=== PATIENT | male | born 1955 | race African-American/Black ===

== ENCOUNTER 2016-11-19 07:23 | Inpatient (IN) | payer OTHER ==
[2016-11-19] VITALS (21 sets, daily range): BP systolic 106–158; BP diastolic 59–93; PULSE 70–98; RESP 12–30; TEMP 98.3; Ht 177.8 cm; Wt 76.0 kg
[~2016-11-19] VITALS: Ht 177.8 cm; Wt 76.0 kg
[~2016-11-19 07:23] MED LIST: ALLO100T PO; LOSA1TAB21 PO; SIMV40TA2 PO
[2016-11-19] MEDS ORDERED: NITROGLYCERIN 2% 1 GM OINT PKT TD STA (07:39)
[2016-11-19] MEDS ORDERED: ASPIRIN 325 MG TAB PO STA (07:39)
--- NOTE | 2016-11-19 08:05 | ERA ---
ER Documentation Chief Complaint Date/Time DATE: 11/19/16 TIME: 08:01 Chief Complaint Chest pain x today HPI This 61-year-old male with a history of hypertension high cholesterol with prior stents 3. The first 2 stents were placed emergently and the third stent was placed year and a half ago due to angina and found blockage on cath. Patient is complaining of 2 days of chest pain that feels like prior heart pain but not quite as severe. He is having some pressure with no radiation, positive palpitations, mild shortness of breath and some diaphoresis. Currently has no pain. The pain occurs mostly when he is exerting himself and not at rest. Patient has nitro and did not try taking it. Patient has had no chest pain for the past year and a half ROS All systems reviewed and are negative except as per history of present illness. Medications Home Meds Reported Medications Losartan-Hydrochlorothiazide (Losartan-HCTZ) 100-12.5 Mg Tab, 1 TAB PO DAILY, TAB 12/12/14 Allopurinol* (Allopurinol*) 100 Mg Tablet, 100 MG PO DAILY, TAB 12/12/14 Simvastatin* (Zocor*) 40 Mg Tablet, 40 MG PO HS, TAB 12/12/14 Allergies Allergies: Coded Allergies: No Known Allergy (Unverified , 12/12/14) PMhx/Soc History of Surgery: Yes (LUNG SURGERY FOR SHRAPNEL) Anesthesia Reaction: No Hx Neurological Disorder: No Hx Respiratory Disorders: No Hx Cardiac Disorders: Yes (PREV CORONARY STENTS 3 YRS AGO) Hx Psychiatric Problems: No Hx Miscellaneous Medical Probl: No Hx Alcohol Use: Yes (SOCIAL) Hx Substance Use: Yes (MARIJUANA, LAST USE 12/11/2014) Hx Tobacco Use: No Smoking Status: Never smoker FmHx Family History: coronary disease Physical Exam Vitals Vital Signs Date Time Temp Pulse Resp B/P Pulse Ox O2 Delivery O2 Flow Rate FiO2 11/19/16 07:27 96.6 54 18 143/63 100 Physical Exam Const: Well-developed, well-nourished Head: Atraumatic, normocephalic Eyes: Normal Conjunctiva, PERRLA, EOMI, normal sclera, no nystagmus ENT: Normal External Ears, Nose and Mouth, moist mucus membranes. Neck: Full range of motion. No meningismus, no lymphadenopathy. Resp: Clear to auscultation bilaterally, no wheezing, rhonchi, rales Cardio: Regular rate and rhythm, no murmurs, S1 S2 present Abd: Soft, non tender x 4, non distended. Normal bowel sounds, no guarding or rebound, no pulsitile abdominal masses or bruits Skin: No petechiae or rashes, no ecchymosis , no maculopapular rash Back: No midline or flank tenderness Ext: No cyanosis, or edema, FROM x 4, normal inspection, neurovascularly intact x 4 Neur: Awake and alert, STR 5/5 x 4, sensation intact x 4, no focal findings, cerebellum intact Psych: Normal Mood and Affect Result Diagram: 11/19/16 0800 11/19/16 0900 Results 24 hrs Laboratory Tests Test 11/19/16 08:00 11/19/16 09:00 White Blood Count 3.910^3/ul Red Blood Count 5.9310^6/ul Hemoglobin 15.3g/dl Hematocrit 49.1% Mean Corpuscular Volume 82.8fl Mean Corpuscular Hemoglobin 25.8pg Mean Corpuscular Hemoglobin Concent 31.2g/dl Red Cell Distribution Width 15.8% Platelet Count 06639^3/UL Mean Platelet Volume 10.9fl Neutrophils % 30.0% Band Neutrophils % 2.0% Lymphocytes % 42.0% Monocytes % 18.0% Eosinophils % 4.0% Metamyelocytes % 2.0% Myelocytes % 2.0% Neutrophils # 1.210^3/ul Lymphocytes # 1.610^3/ul Monocytes # 0.710^3/ul Eosinophils # 0.210^3/ul Metamyelocytes # 0.1 Myelocytes # 0.1 Differential Comment MANUAL DIFF Giant Platelets RARE Hypochromasia 1+ Anisocytosis 1+ Microcytosis 1+ Prothrombin Time 11.9Sec Prothrombin Time Ratio 0.9 INR International Normalized Ratio 0.88 Activated Partial Thromboplast Time 25.5Sec Sodium Level 147mmol/L Potassium Level 4.3mmol/L Chloride Level 105mmol/L Carbon Dioxide Level 28mmol/L Anion Gap 18 Blood Urea Nitrogen 14mg/dl Creatinine 1.00mg/dl Glucose Level 106mg/dl Calcium Level 9.7mg/dl Total Bilirubin 0.5mg/dl Direct Bilirubin 0.00mg/dl Indirect Bilirubin 0.5mg/dl Aspartate Amino Transf (AST/SGOT) 100IU/L Alanine Aminotransferase (ALT/SGPT) 38IU/L Alkaline Phosphatase 111IU/L Troponin I 0.978ng/ml Total Protein 8.4g/dl Albumin 4.0g/dl Globulin 4.40g/dl Albumin/Globulin Ratio 0.90 Current Medications Medications (Trade) Dose Ordered Sig/Ja Route PRN Reason Start Time Stop Time Status Last Admin Dose Admin Aspirin (Aspirin) 325 mg ONCE STAT PO 11/19/16 07:39 11/19/16 07:46 DC 11/19/16 08:11 Nitroglycerin (Nitroglycerin 2% Oint) 1 inch ONCE STAT TD 11/19/16 07:39 11/19/16 07:46 DC 11/19/16 08:11 Enoxaparin Sodium (Lovenox) 80 mg ONCE STAT SC 11/19/16 10:02 11/19/16 10:04 DC Procedures/MDM EKG: Rate/Rhythm: Sinus tachycardia heart rate 101, inferior and anterior Q waves, ectopy, left axis deviation QRS, ST, QT: NORMAL UT, QRS, QT] Impression: Abnormal l EKG Patient has elevated troponin. He received nitroglycerin, aspirin, Lovenox subcu. 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 Farnsworth Critical Care Time: 30 minutes Treatments/Evaluations: Close monitoring and treatment of unstable vital signs, cardiorespiratory, and neurologic status, while maintaining tight balance of fluid, respiratory, and cardiac interventions. This time includes discussing the case with the patient and the patient's family. This time does not include all procedures stated elsewhere in this record. This time also includes reviewing old records, labs and radiological studies. This time includes examining and re-examining the patient. Additionally, this time also includes arranging care with admitting and consulting physicians. Accepting Care Team: Current data and ongoing care discussed. Time: Time of admission Primary Provider: [XOXOXO] Consulting: [XOXOXO] Outstanding Data: none Departure Diagnosis: Primary Impression: Non-ST elevated myocardial infarction Condition: Stable CATHIE SIMMONS Nov 19, 2016 08:05
--- NOTE | 2016-11-19 08:15 | RADRPT ---
PROCEDURE: XR Chest 1 View. CLINICAL INDICATION: Chest pain TECHNIQUE: AP view of the chest was obtained. COMPARISON: December 12, 2014 FINDINGS: The heart size is within normal limits. Calcified atherosclerosis is noted in the aorta. Surgical c lips and micro favian over the right upper chest are unchanged. Blunting right costophrenic angle is observed. Atelectasis is seen at the right lung base. Lungs are hyperexpanded. Chronic interst itial prominence is seen in both lungs. The osseous structures are osteopenic, but appear grossly in tact. Degenerative changes are seen in the shoulders. IMPRESSION: Calcified atherosclerosis in the aorta. Blunting of the right costophrenic angle that may reflect small pleural effusion. Atelectasis at the right lung base. Hyperexpanded lungs with chronic mild interstitial prominence in both lungs. Findings could reflect COPD. RPTAT: AA .Garret Donovan MD, Date Time Electronically viewed and signed by .Garret Donovan MD, on 11/19/2016 08:15 .P/
[2016-11-19 08:18] LABS: ADD SCAN DIFF NO
[2016-11-19 08:20] LABS: HEMATOCRIT 49.1 % (42.0-52.0); HEMOGLOBIN 15.3 g/dl (14.0-18.0); MEAN CORPUSCULAR HEMOGLOBIN 25.8 pg (29.0-33.0); MEAN CORPUSCULAR HGB CONC 31.2 g/dl (32.0-37.0); MEAN CORPUSCULAR VOLUME 82.8 fl (82.0-101.0); MEAN PLATELET VOLUME 10.9 fl (7.4-10.4); PLATELET COUNT 221 10^3/UL (140-415); RED BLOOD COUNT 5.93 10^6/ul (4.70-6.10); RED CELL DISTRIBUTION WIDTH 15.8 % (11.5-14.5); WHITE BLOOD COUNT 3.9 10^3/ul (4.8-10.8)
[2016-11-19 08:32] LABS: INR 0.88; PARTIAL THROMBOPLASTIN TIME 25.5 Sec (25.0-35.0); PROTIME 11.9 Sec (12.2-14.2); PT RATIO 0.9
[2016-11-19 09:42] LABS: POTASSIUM 4.3 mmol/L (3.5-5.1)
[2016-11-19 09:44] LABS: BILIRUBIN,INDIRECT 0.5 mg/dl (0-1.1); BILIRUBIN,TOTAL 0.5 mg/dl (0.2-1.3)
[2016-11-19 09:45] LABS: ALBUMIN/GLOBULIN RATIO 0.9; TOTAL PROTEIN 8.4 g/dl (6.1-8.1)
[2016-11-19 09:46] LABS: CALCIUM 9.7 mg/dl (8.4-10.2)
[2016-11-19 09:56] LABS: TROPONIN-I 0.978 ng/ml (0.00-0.12)
[2016-11-19] MEDS ORDERED: ENOXAPARIN 80 MG/0.8 ML SYG SC STA (10:02)
[2016-11-19 10:05] LABS: ANISOCYTOSIS 1+; EOSINOPHILS # 0.2 10^3/ul (0.0-0.5); HYPOCHROMASIA 1+; LYMPHOCYTES # 1.6 10^3/ul (0.8-2.9); MICROCYTOSIS 1+; MONOCYTE # 0.7 10^3/ul (0.3-0.9); MYELOCYTES # 0.1; NEUTROPHIL # 1.2 10^3/ul (1.6-7.5)
[2016-11-19] MEDS ORDERED: ACETAMINOPHEN 325 MG TAB PO PRN ×2 (10:30→17:00)
[2016-11-19] MEDS ORDERED: ONDANSETRON 4 MG INJ IV PRN ×2 (10:30→17:00)
[2016-11-19] MEDS ORDERED: ASPI-664 PO (11:13)
[2016-11-19] MEDS ORDERED: PANT40TA4 PO (11:33)
[2016-11-19] MEDS ORDERED: ASPI325T32 PO (11:33)
--- NOTE | 2016-11-19 11:38 | CONS ---
Date/Time of Note Date/Time of Note DATE: 11/19/16 TIME: 11:34 Assessment/Plan Assessment/Plan Additional Assessment/Plan Non-ST elevation NE Coronary artery disease with history of PCI Hypertension Dyslipidemia -Patient with symptoms of exertional chest pain or shortness of breath with elevated troponin and history of coronary artery disease with PCI. Injured him from 2014 reviewed with history of circumflex stent and at that time patient with in-stent restenosis and this was angioplastied. Given his symptoms, risk factors elevated troponin, would proceed with cardiac catheterization. The procedure was seen to patient including complications and agrees to proceed. Continue aspirin, statin, beta-alvarez as heart rate and blood pressure permits. Check echocardiogram Consultation Date/Type/Reason Admit Date/Time Type of Consultation: cv Reason for Consultation Chest pain and shortness of breath over the past couple days Hx of Present Illness This is a 61-year-old male with past medical history of coronary artery disease with PCI, hypertension who presents with exertional shortness of breath and chest pain. Symptoms have been progressing over the past couple days and became worse so he came to the emergency room. Symptoms are exacerbated with activity and improved with rest. Shortness of breath is the predominant symptom. Denies any dizziness, lightheadedness. He has been feeling nauseous and sweaty when he gets short of breath. He currently is feeling better in the emergency room. He denies any fevers or chills, abdominal pain or nausea 12 point review of systems was performed with all pertinent positives and negatives mentioned above and all else is negative Past Medical History Medical History: coronary artery disease, high cholesterol, hypertension Past Surgical History Past Surgical Hx: angioplasty Family History Significant Family History: no pertinent family hx Social History Alcohol Use: occasionally Smoking Status: Never smoker Drug Use: none Exam/Review of Systems Vital Signs Vitals Vital Signs Date Time Temp Pulse Resp B/P Pulse Ox O2 Delivery O2 Flow Rate FiO2 11/19/16 09:40 98.3 89 16 92/80 100 Room Air Exam No apparent distress Constitutional: alert, oriented Head: normocephalic Neck: supple Respiratory: other (Coarse breath sounds bilaterally, no wheezing) Cardiovascular: other (S1-S2 heard), regular rate and rhythm Gastrointestinal: bowel sounds, non-tender, other (No guarding), soft Extremities: other (No edema or cyanosis) Results Result Diagram: 11/19/16 0800 11/19/16 0900 Results 24 hrs Laboratory Tests Test 11/19/16 08:00 11/19/16 09:00 White Blood Count 3.9 #L Red Blood Count 5.93 Hemoglobin 15.3 Hematocrit 49.1 Mean Corpuscular Volume 82.8 Mean Corpuscular Hemoglobin 25.8 L Mean Corpuscular Hemoglobin Concent 31.2 L Red Cell Distribution Width 15.8 H Platelet Count 221 Mean Platelet Volume 10.9 #H Neutrophils % 30.0 L Band Neutrophils % 2.0 Lymphocytes % 42.0 Monocytes % 18.0 H Eosinophils % 4.0 Metamyelocytes % 2.0 H Myelocytes % 2.0 H Neutrophils # 1.2 L Lymphocytes # 1.6 Monocytes # 0.7 Eosinophils # 0.2 Metamyelocytes # 0.1 Myelocytes # 0.1 Differential Comment MANUAL DIFF Giant Platelets RARE Hypochromasia 1+ Anisocytosis 1+ Microcytosis 1+ Prothrombin Time 11.9 L Prothrombin Time Ratio 0.9 INR International Normalized Ratio 0.88 Activated Partial Thromboplast Time 25.5 Sodium Level 147 H Potassium Level 4.3 Chloride Level 105 Carbon Dioxide Level 28 Anion Gap 18 H Blood Urea Nitrogen 14 Creatinine 1.00 Glucose Level 106 Calcium Level 9.7 Total Bilirubin 0.5 Direct Bilirubin 0.00 Indirect Bilirubin 0.5 Aspartate Amino Transf (AST/SGOT) 100 H Alanine Aminotransferase (ALT/SGPT) 38 Alkaline Phosphatase 111 Troponin I 0.978 *H Total Protein 8.4 H Albumin 4.0 Globulin 4.40 H Albumin/Globulin Ratio 0.90 Procedures Procedures ECG demonstrates sinus tachycardia at 101 bpm, left ventricular hypertrophy, QRS 104 ms, lateral T-wave inversions, PVC Don Albarran DO Nov 19, 2016 11:37
[2016-11-19] MEDS ORDERED: NITROGLYCERIN (SL) 0.4 MG TAB SL PRN (14:00)
[2016-11-19] MEDS ORDERED: VERAPAMIL 5 MG INJ ONE (15:28)
[2016-11-19] MEDS ORDERED: HEPARIN 1000 UNITS/ML 10 ML INJ ONE ×2 (15:28→16:01)
[2016-11-19] MEDS ORDERED: LIDOCAINE 1% (MDV) 20 ML INJ ONE (15:28)
[2016-11-19] MEDS ORDERED: FENTAnyl 50 MCG/ML VIAL ONE (15:28)
[2016-11-19] MEDS ORDERED: MIDAZOLAM 1 MG/ML 2 ML INJ ONE (15:28)
[2016-11-19] MEDS ORDERED: NITROGLYCERIN (IC) 100 MCG/ML INJ ONE (15:28)
[2016-11-19] MEDS ORDERED: SOD CHLORIDE 0.9% 500 ML ONE (15:28)
[2016-11-19] MEDS ORDERED: IODIXANOL LOCM 100 ML BTL ONE ×2 (15:28→16:45)
[2016-11-19] MEDS ORDERED: SOD CHLORIDE 0.9% 1,000 ML IV SCH (16:36)
[2016-11-19] MEDS ORDERED: SOD CHLORIDE 0.9% 100 ML ONE (16:45)
[2016-11-19] MEDS ORDERED: IODIXANOL LOCM 50 ML BTL ONE (16:46)
[2016-11-19] MEDS ORDERED: AL HYDROX/MG HYDROX/SIMETH 30 ML CUP PO PRN (17:00)
--- NOTE | 2016-11-19 17:11 | RADRPT ---
Echocardiogram Report Patient Name: NIKOLAI ANDREWS Gender: Male Date: 1955 Study Date: 19-Nov-2016 Soft Work Wrapper Examiner: Shubham Mcnamara RDCS Location: [facility] Ref. Physician: DON CRUM Quality: Adequate Procedures: Transthoracic echocardiogram with complete 2D, M-Mode, and doppler examination. Indications: Myocardial Infarction. 2D/M Mode Doppler Measurement Value Normal Ranges Measurement Value Normal Ranges LVIDd 2D 5.9 3.5 - 5.6 cm AV Peak Indra 1.4 m/sec LVIDs 2D 4.9 2.1 - 4.1 cm AV Peak PG 8.0 mmHg FS 2D 17.2 % LVOT Peak Indra 0.7 m/sec LVPWd 2D 1.0 0.6 - 1.1 cm LVOT Peak PG 2.0 mmHg IVSd 2D 1.1 0.6 - 1.1 cm MV E Peak Indra 0.8 m/sec IVS/LVPW 2D 1.2 MV A Peak Indra 1.0 m/sec AoR Diam 2D 3.1 2.0 - 3.7 cm MV E/A 0.8 LA/Ao 2D 1 0 - 1 MV Decel Time 151 msec EDV 2D 207.0 cm3 MV E/A 0.8 ESV 2D 118.0 cm3 TR Peak Indra 1.8 m/sec LA Dimen 2D 3.8 2.3 - 4.0 cm TR Peak PG 12.0 mmHg RVSP 15.0 mmHg Findings Left Ventricle: Normal left ventricular wall thickness. Mild enlargement of left ventricle cavity. Moderate left ventricular systolic dysfunction. Ejection fraction is visually estimated at 40 %. Tissue Doppler/Mitral Doppler indices are consistent with impaired relaxation (Stage I diastolic dysfunction). These segments of the LV are akinetic inferior mid segment and inferior base segment. These segments of the LV are dyskinetic inferior apex segment. Right Ventricle: Normal right ventricular size. Normal right ventricular systolic function. Left Atrium: The left atrium is normal in size. Right Atrium: The right atrium is normal in size. Mitral Valve: Normal appearance of the mitral valve. Mild mitral annular calcification. Mild mitral valve regurgitation. Aortic Valve: No significant aortic stenosis or insufficiency. Aortic cusps appear mildly calcified. Tricuspid Valve: Normal appearance of the tricuspid valve. Estimated peak PA systolic pressure 15 mmHg. There is trace tricuspid regurgitation. Pulmonic Valve: Pulmonic valve not well visualized. Pericardium: Normal pericardium with no significant pericardial effusion. Aorta: Normal aortic root. IVC: Normal size and normal respiratory collapse consistent with normal right atrial pressure. Conclusions 1.Normal left ventricular wall thickness. Mild enlargement of left ventricle cavity. Moderate left ventricular systolic dysfunction. Ejection fraction is visually estimated at 40 %. Tissue Doppler/Mitral Doppler indices are consistent with impaired relaxation (Stage I diastolic dysfunction). These segments of the LV are dyskinetic inferior apex segment. These segments of the LV are akinetic inferior mid segment and inferior base segment. 2.Normal right ventricular size. Normal right ventricular systolic function. 3.The left atrium is normal in size. 4.The right atrium is normal in size. 5.Mild mitral valve regurgitation. 6.No significant valvular stenosis or regurgitation seen of remaining visualized valves. 7.Normal pericardium with no significant pericardial effusion. Electronically Signed By: Don Crum 19-Nov-2016 17:11:04 -0700 Patient Name: NIKOLAI ANDREWS Study Date: 19-Nov-2016 [id number]
--- NOTE | 2016-11-19 17:31 | RADRPT ---
PROCEDURE: CT Pulmonary Angiogram. CLINICAL INDICATION: Chest pain and shortness of breath. TECHNIQUE: CT pulmonary angiogram and a CT scan of the chest with contrast was performed. The pat ient was scanned following the uncomplicated intravenous administration of 120 cc of Visipaque 320 i ntravenous contrast. 2-D coronal reformatted images were obtained from the axial source images. In addition, 3-D post processing was performed. Total exam DLP is 553.07 mGy-cm. CTDIvol is 16.90 mG y. One or more of the following dose reduction techniques were used: Automated exposure control, ad justment of the mA and/or kV according to patient size, use of iterative reconstruction technique. COMPARISON: Chest radiograph done earlier the same day. FINDINGS: The pulmonary arteries are normal with no filling defect or lack of enhancement to suggest pulmonary artery embolism. Severe emphysematous changes are present bilaterally with multiple subpleural blebs throughout the l ungs. Larger bullae are present in the upper lung zones bilaterally. Surgical clips are present fr om prior right upper lobe surgery. There is no pulmonary airspace or interstitial disease. There is no pulmonary nodule or mass lesion. There is no pneumothorax. There is no mediastinal or hilar lymphadenopathy or mass. There is no pleural effusion. There is no pericardial effusion. The heart is enlarged. There is cor onary artery calcification. The thoracic aorta is not dilated. No contrast is present in the aorta due to bolus timing. Images through the upper abdomen demonstrate normal visualized portions of the liver, spleen, and ad renals. There are mild degenerative changes of the spine. There is no fracture or lytic lesion. IMPRESSION: 1. Normal CT pulmonary angiogram with no evidence of pulmonary artery embolism. 2. Severe emphysematous changes bilaterally with multiple subpleural blebs and larger bulla in the upper lung zones bilaterally. 3. Prior right upper lobe surgery. 4. Cardiomegaly and coronary artery calcification. 5. Mild degenerative changes of the spine. RPTAT: QQ .Adin Dang MD, Date Time Electronically viewed and signed by .Adin Dang MD, on 11/19/2016 17:31 .R/
--- NOTE | 2016-11-19 17:35 | CARRPT ---
DATE OF PROCEDURE: 11/19/2016 PROCEDURES: 1. Left heart catheterization. 2. Right and left coronary angiogram. 3. Interpretation and supervision of right and left coronary angiogram. 4. Left ventricular pressure measurements. 5. Left ventriculogram. 6. Right radial artery approach. PATIENT HISTORY: This is a 61-year-old male who presents with shortness of breath and elevated trop onins, concerning for non-ST elevation myocardial infarction. FINDINGS: Hemodynamics: 1. LV pressure was 169/0 with an EDP of 26. 2. Aortic pressure was 162/65. FINDINGS: 1. Left main is a medium caliber vessel with distal 10% stenosis. 2. Circumflex is a medium to large caliber vessel and is dominant. There is a mid stent which is p atent with 20% in-stent restenosis. After that, there is a 30% area of stenosis. The PDA has a elvis nt in the mid to distal portion, which is patent with a 20% in-stent restenosis. The first caliber medium obtuse marginal has an ostial 20% stenosis, a mid stent which is patent with 10% in-stent res tenosis. 3. LAD is a medium caliber vessel. There is a proximal 20% stenosis, mid 20% stenosis and a distal 10% stenosis. 4. RCA is a small caliber vessel and is nondominant, with a distal 30% diffuse stenosis. 5. Left ventriculogram demonstrates an ejection fraction of approximately 40 to 45%. There is infe rior akinesis and inferior apical dyskinesis. DESCRIPTION OF PROCEDURE: The patient was brought to quality lab technician after informed consent. The patient was prepped and draped as per protocol. Right radial access was obtained using ultrasound guidance. A 5/6 Martiniquais sheath was placed in the right radial artery. A 5-Martiniquais JL3.5 diagnostic catheter w as used to engage the left main. Angiogram was performed. We next used a 5-Martiniquais JR4 catheter to engage the RCA and angiogram was performed. We next used a 6-Martiniquais angled pigtail into the left ve ntricle. Pressure measurements were obtained. We next did a left ventriculogram as well as pullbac k. Images were compared to his cardiac catheterization in 2014 and there was no significant change compared to the final results of the angiogram at that time. ____ patient with inferior akinesis, i nferoapical dyskinesis. All catheters and wires were removed. There were no immediate complication s. DIAGNOSES: 1. Myocardial infarction. 2. Congestive heart failure. COMPLICATIONS: None. ESTIMATED BLOOD LOSS: Minimal. RECOMMENDATIONS: Aggressive medical management. Evaluate other causes of the patient's symptoms an d cardiomyopathy. Dictated By: ROBINA GRANGER/CINDY Conf#: [id number] DID#: [id number]
[2016-11-19] MEDS ORDERED: ATORVASTATIN 40 MG TAB PO SCH (21:00)
--- NOTE | 2016-11-19 22:54 | QN ---
Documentation Comment [id number] DOMINGA ELISE MD Nov 19, 2016 22:54
[2016-11-19] MEDS ORDERED: ZOLPIDEM 5 MG TAB PO PRN (23:06)
[2016-11-20] VITALS (8 sets, daily range): BP systolic 123–127; BP diastolic 53–70; PULSE 63–106; RESP 18
--- NOTE | 2016-11-20 01:23 | HP ---
DATE OF ADMISSION: 11/19/2016 HISTORY OF PRESENT ILLNESS: The patient is a 61-year-old male with history of CAD, history of coronary angiogram and stent placement in the past, presented with chest pain. The patient was being seen by Dr. Albarran previously. The patient had a left heart catheterization 12/02/2014, right and left coronary angiogram. Patient had percutaneous coronary intervention and severe in-stent restenosis in the left circumflex with balloon angioplasty and cutting balloon angioplasty with a 3.0 balloon. The patient now presents with chest pain and is being seen by Dr. Albarran for further management. PAST MEDICAL HISTORY: Positive for CAD. The patient has a history of stent placement. The patient has a history of gout. ALLERGY HISTORY: NEGATIVE. FAMILY HISTORY: Noncontributory. SOCIAL HISTORY: Positive for smoking. Patient was seen in the ER and is going to be admitted for further management. MEDICATIONS AT HOME: Include: 1. Allopurinol. 2. Aspirin. 3. Hydrochlorothiazide. 4. Protonix. REVIEW OF SYSTEMS HEENT: Unremarkable. RESPIRATORY: Unremarkable. CARDIOVASCULAR: As mentioned above, complaining of chest pain. ABDOMEN: Unremarkable. EXTREMITIES: Unremarkable. PHYSICAL EXAMINATION: GENERAL: The patient is awake, alert. VITAL SIGNS: Stable with pulse 55, blood pressure stable. HEAD: Atraumatic, normocephalic. Pupils equal, reactive to light. NECK: Supple. No JVD. LUNGS: Clear. CARDIOVASCULAR: S1, S2 are normal. ABDOMEN: Soft, nontender. Bowel sounds present. No palpable mass or hepatosplenomegaly. EXTREMITIES: No cyanosis, clubbing, or edema. CENTRAL NERVOUS SYSTEM: The patient is awake and alert with no focal deficit. LABORATORY DATA: WBC 3.9, hematocrit 49.1, platelet count of 221, sodium 147, potassium 4.3. Troponin . rhythm on the monitor shows sinus rhythm. EMERGENCY ROOM COURSE: The patient had a chest x-ray done, shows calcified atherosclerosis in the aorta, blunting of the right costophrenic angle that may reflect small pleural effusion. The patient has normal CT pulmonary angiogram with no evidence of pulmonary artery embolism, severe _ changes bilaterally with multiple subpleural blebs and a large _ in the upper lung zones bilaterally , right upper lobe surgery, cardiomegaly, coronary artery calcification, mild degenerative changes of the spine. IMPRESSION: 1. Non-ST elevation myocardial infarction. 2. Underlying chronic obstructive pulmonary disease. 3. The patient has hypernatremia. 4. Neutropenia. 5. History of angiogram and stent and angioplasty in the past. PLAN: To continue antianginal treatment. Follow recommendations from Dr. Albarran. The patient will be undergoing coronary angiogram. Dictated By: DOMINGA ELISE MD BS/NTS Conf#: [id number] DID#: [id number]
[2016-11-20] MEDS ORDERED: PANTOPRAZOLE (EC) 40 MG TAB PO SCH (06:00)
[2016-11-20 07:33] LABS: ADD SCAN DIFF NO
[2016-11-20 07:39] LABS: ABNORMAL IP MESSAGE 1; BASOPHILS % 0.3 % (0.0-2.0); EOSINOPHILS # 0.2 10^3/ul (0.0-0.5); EOSINOPHILS % 5.4 % (0.0-7.0); HEMATOCRIT 41.4 % (42.0-52.0); HEMOGLOBIN 12.7 g/dl (14.0-18.0); LYMPHOCYTES # 1.4 10^3/ul (0.8-2.9); LYMPHOCYTES % 45.5 % (15.0-51.0); MEAN CORPUSCULAR HEMOGLOBIN 25.5 pg (29.0-33.0); MEAN CORPUSCULAR HGB CONC 30.7 g/dl (32.0-37.0); MEAN CORPUSCULAR VOLUME 83.1 fl (82.0-101.0); MEAN PLATELET VOLUME 10.6 fl (7.4-10.4); MONOCYTE # 0.6 10^3/ul (0.3-0.9); MONOCYTES % 18.2 % (0.0-11.0); NEUTROPHIL # 0.9 10^3/ul (1.6-7.5); PLATELET COUNT 176 10^3/UL (140-415); RED BLOOD COUNT 4.98 10^6/ul (4.70-6.10); RED CELL DISTRIBUTION WIDTH 15.5 % (11.5-14.5); WHITE BLOOD COUNT 3.1 10^3/ul (4.8-10.8)
[2016-11-20 07:49] LABS: MAGNESIUM 1.7 mg/dl (1.7-2.5)
[2016-11-20 07:53] LABS: POTASSIUM 3.7 mmol/L (3.5-5.1)
[2016-11-20 07:55] LABS: CREATININE 0.96 mg/dl (0.61-1.24)
[2016-11-20 08:05] LABS: TROPONIN-I 0.782 ng/ml (0.00-0.12)
[2016-11-20] MEDS ORDERED: ALLOPURINOL 100 MG TAB PO SCH (09:00)
[2016-11-20] MEDS ORDERED: ASPIRIN 81 MG TAB PO SCH (09:00)
[2016-11-20] MEDS ORDERED: MAGNESIUM SULFATE 2 GM/50 ML 50 ML IVPB ONE (11:30)
== END 2016-11-20 15:30 | disposition left against medical advice (07) | DRG 281 ==
LOC: E/R 07:23 → SDS 15:38 → TEL 18:58
PROVIDERS: ADMIT Internal Medicine Nephrology; ATTEND Internal Medicine Nephrology
PROC: 4A023N7 Measurement of Cardiac Sampling and Pressure, Left Heart, Percutaneous Approach (ICD-10-PCS; principal; 2016-11-19)
PROC: B2151ZZ Fluoroscopy of Left Heart using Low Osmolar Contrast (ICD-10-PCS; 2016-11-19)
PROC: B2111ZZ Fluoroscopy of Multiple Coronary Arteries using Low Osmolar Contrast (ICD-10-PCS; 2016-11-19)
DX: I21.4 Non-ST elevation (NSTEMI) myocardial infarction (principal); E87.0 Hyperosmolality and hypernatremia; D70.9 Neutropenia, unspecified; J44.9 Chronic obstructive pulmonary disease, unspecified; I25.10 Atherosclerotic heart disease of native coronary artery without angina pectoris; I10 Essential (primary) hypertension; I50.9 Heart failure, unspecified; E78.00 Pure hypercholesterolemia, unspecified
CPT/HCPCS: 36415; 71010; 71275; 80048; 80053; 80061; 83735; 84484; 85025; 85610; 85730; 93005; 93306; 93458; 96372; C1769; C1887; J1644; J2250; J3010; J7030; J7040; Q9967